=== PATIENT | female | born 1985 | race Caucasian/White ===

== ENCOUNTER 2017-03-06 21:37 | Emergency (ER) | payer OTHER ==
[~2017-03-06] VITALS: Ht 160 cm; Wt 116.8 kg
[~2017-03-06 21:37] MED LIST: ALBUTEROL SULF8.5 GM IH; ENDOCET 5-3251 EACH PO; FLAGYL500 MG PO; KLONOPIN0.5 M1 PO; MEGESTROL ACETA20 MG PO; MOTRIN800 MG PO; NAPROSYN500 MG PO; NOHOMEMEDS; NORCO 5/3251 TABLET PO; NORTREL1 EAC2 PO; PERCOCET 5/31 TABLET PO; SERTRALINE HCL100 MG PO; TESSALON PERLE100 MG PO; TORADOL10 MG PO; ZOFRAN4 MG PO; ZOLOFT100 MG PO
[2017-03-06 21:53] LABS: ADD MIUA? YES; BILIRUBIN NEGATIVE; BLOOD NEGATIVE; COLOR YELLOW ((YELLOW)); GLUCOSE (STRIP) NEGATIVE; KETONES NEGATIVE; LEUKOCYTES MODERATE; NITRITE NEGATIVE; PROTEIN (STRIP) 100; SPECIFIC GRAVITY 1.024 (1.000-1.030); UROBILINOGEN 0.2 MG/DL (0.2-1.0)
[2017-03-06 22:07] LABS: BACTERIA 1+ /HPF; EPITHELIAL CELLS 2+ /HPF; MUCUS NONE SEEN /LPF; RED BLOOD CELLS 0-5 /HPF (0-5); UCUL ADDED? YES; WHITE BLOOD CELLS TNTC /HPF (0-5)
[2017-03-06 22:28] LABS: CHLORIDE 107 mEq/L (99-109); POTASSIUM 3.9 mEq/L (3.7-5.4); SODIUM 139 mEq/L (136-147)
[2017-03-06 22:30] LABS: GLUCOSE 97 mg/dL (70-99)
[2017-03-06 22:31] LABS: ANION GAP 9 MEQ/L (2-14)
[2017-03-06 22:32] LABS: TOTAL BILIRUBIN 0.3 mg/dL (0.0-1.0)
[2017-03-06 22:33] LABS: ALKALINE PHOSPHATASE 89 IU/L (3-129); GFR ESTIMATE (CALCULATED) > 59 mL/min/
[2017-03-06 22:35] LABS: UREA NITROGEN (BUN) 10 mg/dL (9-23)
[2017-03-06 22:43] LABS: QUANTITATIVE HCG < 4.0 MIU/ML
[2017-03-06 23:00] LABS: HEMATOCRIT 37.7 % (36.0-46.0); MCH 21.8 PG (29.0-34.0); MCV 72.8 FL (83-99); MEAN PLAT.VOLUME 9.8 uM^3 (9.5-12.4); PLATELET COUNT 394 K/uL (156-360); RBC DIS.WIDTH-CV 17.2 % (11.8-14.6); RBC DIS.WIDTH-SD 43.3 % (39-53); RED BLOOD COUNT 5.18 M/uL (3.80-5.20); WHITE BLOOD COUNT 11.7 K/uL (4.1-10.2)
[2017-03-07] MEDS ORDERED: PYRIDIUM100 MG PO
[2017-03-07] MEDS ORDERED: MACROBID100 MG PO
[2017-03-07 00:02] VITALS: BP 137/81
== END 2017-03-07 00:09 | disposition home or self-care (01) ==
LOC: EME 21:37 → RME 21:37
DX: N39.0 Urinary tract infection, site not specified (principal); K59.00 Constipation, unspecified; F32.9 Major depressive disorder, single episode, unspecified; G43.909 Migraine, unspecified, not intractable, without status migrainosus; K21.9 Gastro-esophageal reflux disease without esophagitis; F17.200 Nicotine dependence, unspecified, uncomplicated
CPT/HCPCS: 74000; 80053; 81003; 84702; 85027; 87077; 87086; 87186; 99281; 99283

== ENCOUNTER 2017-05-21 21:53 | Emergency (ER) | payer SELFPAY ==
[~2017-05-21] VITALS: Ht 160 cm; Wt 113.6 kg
[~2017-05-21 21:53] MED LIST changes: +MACROBID100 MG PO; +PYRIDIUM100 MG PO
[2017-05-21 22:48] LABS: MCH 22.1 PG (29.0-34.0); MCV 73.7 FL (83-99); MEAN PLAT.VOLUME 9.3 uM^3 (9.5-12.4); PLATELET COUNT 323 K/uL (156-360); RBC DIS.WIDTH-CV 17.4 % (11.8-14.6); RBC DIS.WIDTH-SD 45.9 % (39-53); RED BLOOD COUNT 5.43 M/uL (3.80-5.20); WHITE BLOOD COUNT 9.9 K/uL (4.1-10.2)
[2017-05-21 22:53] LABS: CHLORIDE 109 mEq/L (99-109); POTASSIUM 3.7 mEq/L (3.7-5.4); SODIUM 140 mEq/L (136-147)
[2017-05-21 22:55] LABS: GLUCOSE 90 mg/dL (70-99)
[2017-05-21 22:56] LABS: ANION GAP 8 MEQ/L (2-14)
[2017-05-21 22:58] LABS: GFR ESTIMATE (CALCULATED) > 59 mL/min/; SERUM ETHYL ALCOHOL < 10 mg/dL
[2017-05-21 22:59] LABS: UREA NITROGEN (BUN) 9 mg/dL (9-23)
[2017-05-21 23:21] LABS: AMPHETAMINE NEGATIVE (500 ng/mL); BARBITURATES NEGATIVE (200 ng/mL); BENZODIAZEPINES NEGATIVE (150 ng/mL); COCAINE NEGATIVE (150 ng/mL); INTERNAL CONTROLS VALID? YES; METHADONE NEGATIVE (200 ng/mL); METHAMPHETAMINE NEGATIVE (500 ng/mL); OPIATES (MORPHINE) NEGATIVE (100 ng/mL); OXYCODONE NEGATIVE (100 ng/mL); PHENCYCLIDINE NEGATIVE (25 ng/mL); PROPOXYPHENE NEGATIVE (300 ng/mL); THC CANNABINOIDS PRESUMPTIVE POSITIVE (50 ng/mL); TRICYCLIC ANTIDEPRESSANTS NEGATIVE (300 ng/mL)
[2017-05-21 23:22] LABS: ADD MEDTOX COMMENT Y
[2017-05-22 00:17] VITALS: BP 139/89
== END 2017-05-22 00:18 | disposition home or self-care (01) ==
LOC: EME 21:53
DX: F33.2 Major depressive disorder, recurrent severe without psychotic features (principal); K21.9 Gastro-esophageal reflux disease without esophagitis; Z86.73 Personal history of transient ischemic attack (TIA), and cerebral infarction without residual deficits
CPT/HCPCS: 80048; 84999; 85027; 90837; 99281; 99285; G0480